=== PATIENT | female | born 1995 | race Two or more races ===

== ENCOUNTER 2020-10-27 20:55 | Emergency (ER) | payer OTHER ==
[~2020-10-27] VITALS: Ht 170.2 cm; Wt 70.4 kg
[2020-10-27 20:56] VITALS: BP 124/71
[2020-10-27] MEDS ORDERED: DIPHENHYDRAMINE 25 MG CAPSULE ONE (21:29)
[2020-10-27] MEDS ORDERED: DIPHENHYDRAMINE 25 MG CAPSULE PO ONE (21:30)
[2020-10-27] MEDS ORDERED: FAMOTIDINE 20 MG TABLET PO ONE (21:30)
[2020-10-27] MEDS ORDERED: FAMOTIDINE 20 MG TABLET ONE (21:33)
--- NOTE | 2020-10-27 21:58 | NUR ---
PT MEDICATED PER DEC. PT D/C WITH D/C SUMMARY AND SCRIPTS AT THIS TIME AND PROVIDED A WORK NOTE PER PT REQUEST. PT D/C IN CARE OF MOTHER FOR SAFE D/C HOME. PT DENIES ANY OTHER NEEDS PERTAINING TO THIS VISIT AND AMBULATES TO REGISTRATION DESK WITH STEADY GAIT FOR D/C HOME.
== END 2020-10-27 22:02 | disposition home or self-care (01) ==
LOC: ED 22:01
DX: L50.9 Urticaria, unspecified (principal); J02.9 Acute pharyngitis, unspecified
CPT/HCPCS: 99283